=== PATIENT | male | born 1975 | race African-American/Black ===

== ENCOUNTER 2017-06-25 09:17 | Emergency (ER) | payer MEDICAID ==
[~2017-06-25] VITALS: Ht 190.5 cm; Wt 86.0 kg
[2017-06-25] MEDS ORDERED: ACETAMINOPHEN 500MG TABLET PO ONE (10:15)
[2017-06-25] MEDS ORDERED: KETOROLAC 30MG/ML VIAL IM ONE (10:15)
[2017-06-25 11:00] VITALS: BP 138/66
== END 2017-06-25 11:15 | disposition home or self-care (01) ==
LOC: ER 09:17
DX: S16.1XXA Strain of muscle, fascia and tendon at neck level, initial encounter (principal); S39.012A Strain of muscle, fascia and tendon of lower back, initial encounter; V49.9XXA Car occupant (driver) (passenger) injured in unspecified traffic accident, initial encounter; Y93.89 Activity, other specified; Y92.89 Other specified places as the place of occurrence of the external cause; Y99.8 Other external cause status
CPT/HCPCS: 96372; 99283; J1885; Z7610